=== PATIENT | female | born 1985 | race Two or more races ===

== ENCOUNTER 2017-06-22 18:37 | Emergency (ER) | payer OTHER ==
[~2017-06-22] VITALS: Ht 160 cm; Wt 49.9 kg
--- NOTE | 2017-06-22 18:50 | NUR ---
RECIEVED PT AT THIS TIME. PT IS SEATED TO A CHAIR IN ED HALLWAY. PT WAS [id number] FROM THE CLINIC OF HER THERAPIST, FEELING ANXIETY, PT CLAIMS +SI BUT WITHOUT PLAN. PT IS COOPERATIVE UPON ASSESSMENT, NO AGGRESSIVE BEHAVIOR NOTED. NAD VSS RR EVEN AND UNLABORED.SKIN IS WARM AND NONDIAPHORETIC. SEEN AND EVALUATED BY ER
--- NOTE | 2017-06-22 19:15 | NUR ---
PINKY ODD SHOE EXAMINER EVALUATING THE PATIENT.
--- NOTE | 2017-06-22 19:22 | NUR ---
BLOOD AND URINE SENT TO LAB
[2017-06-22 19:23] LABS: BASOPHILS # (AUTO) 0.1 /CMM (0.0-0.2); BASOPHILS % (AUTO) 0.9 % (0.0-2.0); EOSINOPHILS # (AUTO) 0.2 /CMM (0.0-0.7); EOSINOPHILS % (AUTO) 2.7 % (0.0-6.0); HEMATOCRIT 37 % (33-45); LYMPHOCYTES # (AUTO) 1.7 /CMM (0.8-4.8); LYMPHOCYTES % (AUTO) 26.2 % (20.0-44.0); MEAN CORPUSCULAR HEMOGLOBIN 30 PG (26.0-33.0); MEAN CORPUSCULAR HGB CONC 36 g/dl (31.0-36.0); MEAN CORPUSCULAR VOLUME 85 fL (82-100); MONOCYTES # (AUTO) 0.6 /CMM (0.1-1.30); MONOCYTES % (AUTO) 9.6 % (2.0-12.0); NEUTROPHILS # (AUTO) 3.8 /CMM (1.8-8.9); NEUTROPHILS % (AUTO) 60.6 % (43.0-81.0); PLATELET COUNT (AUTO) 229 /CMM (150-450); RDW COEFFICIENT OF VARIATION 11.4 (11.5-15.0); RED BLOOD CELL COUNT(AUTO) 4.32 MIL/uL (4.0-5.2); WHITE BLOOD COUNT (AUTO) 6.4 K/uL (4.3-11.0)
[2017-06-22 19:31] LABS: APPEARANCE,URINE Clear (CLEAR); BILIRUBIN,URINE Negative (NEGATIVE); BLOOD, URINE Negative Ery/uL (NEGATIVE); COLOR,URINE Light yellow (YELLOW); KETONES,URINE Negative (NEGATIVE); LEUKOCYTE ESTERASE ,URINE Negative (NEGATIVE); NITRITE, URINE Negative (NEGATIVE); PH,URINE 7.5 (5.0-8.0); PROTEIN,URINE Negative (NEGATIVE); UGLUCOSE Negative (NEGATIVE); UROBILINOGEN,URINE 0.2 EU/dL (0.2)
[2017-06-22 19:33] LABS: CALCIUM, SERUM 8.9 mg/dL (8.5-10.1); CARBON DIOXIDE 26 mmol/L (21-32); CHLORIDE 103 mmol/L (98-107); CREATININE 0.6 mg/dL (0.6-1.3); GLUCOSE 107 mg/dL (74-106); POTASSIUM 3.4 mmol/L (3.5-5.1); SODIUM SERUM 138 mmol/L (136-145); UREA NITROGEN, BLOOD 10 mg/dL (7-18)
[2017-06-22 19:38] LABS: ALANINE AMINOTRANSFERASE 61 U/L (12-78); ALBUMIN 4.2 g/dL (3.4-5.0); ALCOHOL, BLOOD < 3 mg/dL (0-0); ALKALINE PHOSPHATASE 83 U/L (46-116); ASPARTATE AMINOTRANSFERASE 34 U/L (15-37); BILIRUBIN,DIRECT 0.1 mg/dL (0.0-0.2); BILIRUBIN,TOTAL 0.5 mg/dL (0.2-1.0); TOTAL PROTEIN, SERUM 8.9 g/dL (6.4-8.2)
[2017-06-22 19:43] LABS: ACETAMINOPHEN < 2 ug/ml (10-30); SALICYLATE 0.5 mg/dL (2.8-20.0)
[2017-06-22] MEDS ORDERED: POTASSIUM CHLORIDE 20 MEQ TAB.PRT.SR PO ONE ×2 (19:57→20:00)
--- NOTE | 2017-06-22 21:05 | NUR ---
[facility] CALLED. PENDING ETA
[2017-06-22 21:35] VITALS: BP 104/77
--- NOTE | 2017-06-22 21:40 | NUR ---
report given to severo.
== END 2017-06-22 22:46 ==
LOC: ER 18:40
DX: F32.9 Major depressive disorder, single episode, unspecified (principal); R45.851 Suicidal ideations; F41.9 Anxiety disorder, unspecified
CPT/HCPCS: 36415; 80048-TC; 80076-TC; 80305; 81000-TC; 84703-TC; 85025-TC; A4606; G0480; Z7610